=== PATIENT | female | born 1950 | race African-American/Black ===

== ENCOUNTER 2021-12-02 09:07 | Inpatient (IN) | payer OTHER, MEDICAID ==
[~2021-12-02] VITALS: Ht 162.6 cm; Wt 105.0 kg
[~2021-12-02 09:07] MED LIST: ALBU17AE26; FURO-151; HYDR-1348; NITR0.4T49; POTA20PA3; QUIN1TAB; SIMV5TAB2
[2021-12-02] MEDS ORDERED: ASPIRIN 81MG TABLET PO ONE (09:30)
[2021-12-02 09:57] LABS: EOSINOPHILS % 1.2 % (0.0-5.0); HEMATOCRIT. 39.3 % (36.0-48.0); HEMOGLOBIN. 12.8 g/dL (12.0-16.0); LYMPHOCYTES % 18.2 % (20.0-50.0); MEAN CORPUSCULAR HEMOGLOBIN 29.1 pg (28.0-32.0); MEAN CORPUSCULAR VOLUME 88.9 fL (81.0-99.0); MEAN PLATELET VOLUME 7.7 fl (7.4-10.4); MONOCYTES % 9.5 % (2.0-8.0); NEUTROPHILS % 70.1 % (40.0-76.0); PLATELET 254 x1000/uL (130-400); RED BLOOD CELL COUNT 4.42 mill/uL (4.2-5.4); RED CELL DISTRIBUTION WIDTH 14.7 % (11.6-14.6)
[2021-12-02 10:04] LABS: CHLORIDE 107 mEq/L (98-107)
[2021-12-02 10:12] LABS: CREATINE KINASE 71 IU/L (26-192)
[2021-12-02 10:15] LABS: CREATINE KINASE MB FRACTION < 1.0 ng/mL (0.5-3.6)
[2021-12-02] MEDS ORDERED: NITROGLYCERIN 50MCG/ML 10ML VIAL (CATH LAB) IV ONE (10:27)
[2021-12-02] MEDS ORDERED: NICARDIPINE 100MCG/ML 10ML VIAL (CATH LAB) IV ONE (10:27)
[2021-12-02] MEDS ORDERED: HEPARIN SODIUM 1,000 UNIT/1ML VIAL IV ONE ×2 (10:33→12:31)
[2021-12-02 10:40] LABS: PROTHROMBIN TIME 10.6 sec (9.6-11.0)
[2021-12-02] MEDS: NITROGLYCERIN OINT 1GM/INCH UDPKT TD SCH ×3 (10:42→22:11)
[2021-12-02] MEDS ORDERED: IODIXANOL 320MG/ML 100 ML BOTTLE IV ONE (11:18)
[2021-12-02] MEDS ORDERED: LIDOCAINE HCL 1% 30ML VIAL (10MG/ML) ONE (11:18)
[2021-12-02] MEDS ORDERED: FENTANYL CITRATE/PF 50MCG/ML 2ML VIAL ONE (11:43)
[2021-12-02] MEDS ORDERED: MIDAZOLAM HCL 2 MG/2 ML VIAL ONE (11:43)
[2021-12-02] MEDS ORDERED: IOHEXOL-300 100 ML BOTTLE ONE (12:30)
[2021-12-02] MEDS ORDERED: ACETAMINOPHEN 325MG TABLET PO PRN (13:00)
[2021-12-02] MEDS ORDERED: ONDANSETRON HCL 4MG/2ML INJ IV PRN (13:00)
[2021-12-02] MEDS ORDERED: ATROPINE SULFATE 1MG/10ML SYR IV PRN (13:00)
[2021-12-02] MEDS ORDERED: ASPIRIN 81MG TABLET ONE ×2 (13:09→13:10)
[2021-12-02] MEDS ORDERED: CLOPIDOGREL 75MG TABLET ONE (13:09)
[2021-12-02 13:25] VITALS: BP 132/95
[2021-12-02 13:38] VITALS: BP 132/85
[2021-12-02] MEDS ORDERED: IPRATROPIUM/ALBUTEROL 0.5-3(2.5)MG/3ML NEB HHN PRN (15:00)
[2021-12-02] MEDS ORDERED: LACTULOSE 20G/30ML UDC PO PRN (15:00)
[2021-12-02] MEDS ORDERED: HYDROCODONE/ACETAMINOPHEN 5/325MG TABLET PO PRN (15:00)
[2021-12-02] MEDS ORDERED: CEFTRIAXONE 1 G PREMIX 50 ML IV SCH (15:00)
[2021-12-02] MEDS ORDERED: BISACODYL 10MG SUPP PR PRN (15:00)
[2021-12-02] MEDS ORDERED: NALOXONE HCL 0.4MG/ML VIAL IV PRN (15:00)
[2021-12-02 15:30] VITALS: BP 137/67
[2021-12-02] MEDS ORDERED: CEFTRIAXONE 1,000 MG in DEXTROSE 5% WATER 50 ML IV SCH (16:00)
[2021-12-02] MEDS ORDERED: PNEUMOCOCCAL 23-VAL P-SAC VAC 0.5 ML IM ONE (16:30)
[2021-12-02 18:00] VITALS: BP 135/92
[2021-12-02 18:19] LABS: CLARITY URINE CLEAR (CLEAR); COLOR URINE YELLOW (YELLOW); KETONES URINE NEGATIVE (NEGATIVE); LEUKOCYTE ESTERASE URINE TRACE (NEGATIVE); NITRITE URINE NEGATIVE (NEGATIVE); OCCULT BLOOD URINE NEGATIVE (NEGATIVE); PROTEIN URINE NEGATIVE (NEGATIVE); SPECIFIC GRAVITY URINE 1.019 (1.005-1.030)
[2021-12-02 20:00] VITALS: BP 119/64
[2021-12-02 22:00] VITALS: BP 125/66
[2021-12-03] VITALS (9 sets, daily range): BP systolic 117–150; BP diastolic 60–73
[2021-12-03] MEDS: NITROGLYCERIN OINT 1GM/INCH UDPKT TD SCH (06:23)
[2021-12-03 07:06] LABS: BASOPHILS % 0.6 % (0.0-2.0); EOSINOPHILS % 4.9 % (0.0-5.0); HEMATOCRIT. 33.9 % (36.0-48.0); HEMOGLOBIN. 11.5 g/dL (12.0-16.0); LYMPHOCYTES % 25.1 % (20.0-50.0); MEAN CORPUSCULAR VOLUME 88.5 fL (81.0-99.0); MEAN PLATELET VOLUME 7.4 fl (7.4-10.4); MONOCYTES % 12.7 % (2.0-8.0); NEUTROPHILS % 56.7 % (40.0-76.0); PLATELET 225 x1000/uL (130-400); RED BLOOD CELL COUNT 3.83 mill/uL (4.2-5.4); RED CELL DISTRIBUTION WIDTH 14.8 % (11.6-14.6)
[2021-12-03] MEDS ORDERED: ASPIRIN 325MG TABLET PO SCH (09:00)
[2021-12-03] MEDS ORDERED: CLOPIDOGREL 75MG TABLET PO SCH (09:00)
[2021-12-03 09:29] LABS: CHLORIDE 110 mEq/L (98-107)
[2021-12-03 09:43] LABS: LDL CHOLESTEROL 109 mg/dL (5-100)
[2021-12-03 09:45] LABS: HDL CHOLESTEROL 51 mg/dL (40-59)
[2021-12-03 09:46] LABS: T4 FREE 0.88 ng/dL (0.76-1.46)
[2021-12-03] MEDS ORDERED: ATOR20TA MT (12:36)
[2021-12-03] MEDS ORDERED: ASPI-986 MT (12:36)
[2021-12-03] MEDS ORDERED: CLOP-31 MT (12:36)
[2021-12-03] MEDS ORDERED: METO25TA6 PO ×3 (12:36→13:08)
[2021-12-03] MEDS ORDERED: METOPROLOL TARTRATE 25MG TABLET PO SCH (21:00)
[2021-12-03] MEDS ORDERED: ATORVASTATIN CALCIUM 20MG TABLET PO SCH (21:00)
== END 2021-12-03 17:55 | disposition home or self-care (01) | DRG 247 ==
LOC: ER 09:07 → 3WST 10:28 → ENRESERV 13:24
PROVIDERS: ADMIT Internal Medicine; ATTEND Internal Medicine
PROC: 027034Z Dilation of Coronary Artery, One Artery with Drug-eluting Intraluminal Device, Percutaneous Approach (ICD-10-PCS; principal; 2021-12-02)
PROC: 4A023N7 Measurement of Cardiac Sampling and Pressure, Left Heart, Percutaneous Approach (ICD-10-PCS; 2021-12-02)
PROC: B211YZZ Fluoroscopy of Multiple Coronary Arteries using Other Contrast (ICD-10-PCS; 2021-12-02)
DX: I25.110 Atherosclerotic heart disease of native coronary artery with unstable angina pectoris (principal); J44.1 Chronic obstructive pulmonary disease with (acute) exacerbation; E78.5 Hyperlipidemia, unspecified; E66.01 Morbid (severe) obesity due to excess calories; R73.9 Hyperglycemia, unspecified; I11.9 Hypertensive heart disease without heart failure; M19.90 Unspecified osteoarthritis, unspecified site; E78.00 Pure hypercholesterolemia, unspecified; Z20.822 Contact with and (suspected) exposure to COVID-19; Z68.39 Body mass index [BMI] 39.0-39.9, adult; Z79.899 Other long term (current) drug therapy; I25.2 Old myocardial infarction; Z88.8 Allergy status to other drugs, medicaments and biological substances; Z95.810 Presence of automatic (implantable) cardiac defibrillator; Z87.891 Personal history of nicotine dependence; Z82.49 Family history of ischemic heart disease and other diseases of the circulatory system; R60.0 Localized edema
CPT/HCPCS: 36415; 71045; 80048; 80053; 80061; 81003; 82550; 82553; 83036; 83735; 83880; 84439; 84443; 84484; 85025; 87426; 90732; 92928; 93005; 93458; 93970; 99291; C1769; C1874; C1887; C1893; J0696; J1644; J2250; J3010; J3490; J7060; Q9967

== ENCOUNTER 2024-11-15 16:45 | Emergency (ER) | payer OTHER, MEDICAID ==
[~2024-11-15] VITALS: Ht 165.1 cm; Wt 104.3 kg
[~2024-11-15 16:45] MED LIST changes: +ASPI-986 MT; +ATOR20TA MT; +CLOP-31 MT; +METO25TA6 PO; -QUIN1TAB; -SIMV5TAB2
[2024-11-15 16:56] VITALS: O2SAT 99
[2024-11-15 17:08] VITALS: BP 186/67; PULSE 83; RESP 16; TEMP 98.3; O2SAT 98
[2024-11-15] MEDS: FUROSEMIDE 40MG TABLET PO ONE (19:17)
== END 2024-11-15 20:17 | disposition home or self-care (01) ==
LOC: ER 17:07
DX: I89.0 Lymphedema, not elsewhere classified (principal); M79.89 Other specified soft tissue disorders; I11.0 Hypertensive heart disease with heart failure; J44.9 Chronic obstructive pulmonary disease, unspecified; J45.909 Unspecified asthma, uncomplicated; I50.9 Heart failure, unspecified; Z79.899 Other long term (current) drug therapy; Z79.82 Long term (current) use of aspirin; Z79.02 Long term (current) use of antithrombotics/antiplatelets
CPT/HCPCS: 71045; 93005; 99283